=== PATIENT | female | born 1980 | race American Indian/Alaskan Native ===

== ENCOUNTER 2016-09-16 13:22 | Emergency (ER) | payer BC, OTHER ==
[2016-09-16 13:38] VITALS: TEMP 98.3; O2SAT 100; BMI 25.2
--- NOTE | 2016-09-16 13:46 | ED PDOC ---
Arrival/HPI - General Historian: Patient - General Time Seen by Provider: 09/16/16 13:37 - History of Present Illness Narrative History of Present Illness (Text): 09/16/16 13:42 35 y/o female, pmh including inguinal hernia, nkda, c/o lt. lower back pain x 3 weeks with no fall or trauma. Pt. stated that she works at [employer], standing for long hours and does heavy lifting, aching pain, on and off, no numbness or tingling and non-radiating pain, no chest pain or shortness of breath, no palpitation, no night sweat, no dizziness, no hematuria, no urinary or bowel incontinence or retention, no other medical or psychological complaints. (Lee Up) Past Medical History - Provider Review Nursing Documentation Reviewed: Yes - Infectious Disease Hx of Infectious Diseases: None - Tetanus Immunization Tetanus Immunization: Unknown - Past Medical History Past Medical History: No Previous - Psychiatric Hx Substance Use: No - Surgical History Hx Section: Yes (2008) Hx Inguinal Hernia Repair: Yes (2014) - Anesthesia Hx Anesthesia: Yes Hx Anesthesia Reactions: No Hx Malignant Hyperthermia: No - Suicidal Assessment Feels Threatened In Home Enviroment: No Family/Social History - Physician Review Nursing Documentation Reviewed: Yes Family/Social History: Unknown Family HX Smoking Status: Light Smoker < 10 Cigarettes Daily Hx Alcohol Use: No Hx Substance Use: No Hx Substance Use Treatment: No Allergies/Home Meds Allergies/Adverse Reactions: Allergies No Known Allergies Allergy (Verified 07/13/14 14:34) Home Medications: Home Meds Medication Instructions Recorded Confirmed Oxycodone HCl/Acetaminophen 1 tab PO PRN PRN 07/13/14 07/13/14 [Percocet 325 mg-5 mg] Review of Systems - Review of Systems Constitutional: absent: Fatigue, Fevers Eyes: absent: Vision Changes ENT: absent: Hearing Changes Respiratory: absent: SOB, Cough Cardiovascular: absent: Chest Pain Gastrointestinal: absent: Abdominal Pain, Nausea, Vomiting Genitourinary Female: absent: Dysuria Musculoskeletal: Back Pain, Myalgias. absent: Arthralgias, Neck Pain, Joint Swelling Skin: Rash Neurological: absent: Headache, Dizziness Psychiatric: absent: Anxiety, Depression Physical Exam Vital Signs Reviewed: Yes Temperature: Afebrile Blood Pressure: Normal Pulse: Regular Respiratory Rate: Normal Appearance: Positive for: Well-Appearing, Non-Toxic Pain Distress: Severe Mental Status: Positive for: Alert and Oriented X 3 - Systems Exam Head: Present: Atraumatic, Normocephalic Pupils: Present: PERRL Extroacular Muscles: Present: EOMI Conjunctiva: Present: Normal Mouth: Present: Moist Mucous Membranes Neck: Present: Normal Range of Motion Respiratory/Chest: Present: Clear to Auscultation, Good Air Exchange. No: Respiratory Distress, Accessory Muscle Use Cardiovascular: Present: Regular Rate and Rhythm, Normal S1, S2. No: Murmurs Abdomen: Present: Normal Bowel Sounds. No: Tenderness, Distention, Peritoneal Signs Back: Present: Normal Inspection, Other (LS spine: +ttp on lt. paraspinal muscle region, no midline tenderness, no rash, FROM without limitation, sensation intact, motor 5/5. ) Upper Extremity: Present: Normal Inspection. No: Cyanosis, Edema Lower Extremity: Present: Normal Inspection. No: Edema Neurological: Present: GCS=15, CN II-XII Intact, Speech Normal Skin: Present: Warm, Dry, Normal Color. 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 -Discharge home with naproxen, flexeril, heat compression, avoid strenuous exercise or activity, follow up with your own pmd within 2 days, return to the ER for any new or worsening signs or symptoms. 09/16/16 14:42 -Pain improved, feeling much better. (Lee Up) I was available for consultation during PA evaluation. The chart was reviewed by me, and I agree with disposition. The documented history was done by the physician care connector. The documented physical exam was done by the physician care connector. The documented procedures were done by the physician care connector. ( Salbador Grimes) - RAD Interpretation Radiology Orders: 09/16/16 13:49 LS SPINE WITH OBL > 18 YRS OLD [RAD] Stat PROCEDURE: Radiographs of the Lumbar Spine. HISTORY: lt. lower back pain x 3 weeks COMPARISON: No prior. FINDINGS: BONES: There is normal alignment of the lumbar vertebral bodies. Lumbar lordosis is maintained. Vertebral bodies are normal in height. There is no acute fracture , spondylolysis or spondylolisthesis. Bone mineralization is normal. DISC SPACES: There is mild degenerative disc disease at L5-S1. The remaining disc heights are maintained. OTHER FINDINGS: There are no pathologic soft tissue calcifications. Both sacroiliac joints are normal. IMPRESSION: No acute fracture, spondylolysis or spondylolisthesis. Mild degenerative disc disease at L5-S1. (Lee Up) - Medication Orders Current Medication Orders: Discontinued Medications Ketorolac Tromethamine (Toradol) 60 mg IM STAT STA Stop: 09/16/16 13:51 Last Admin: 09/16/16 14:06 Dose: 60 mg Lidocaine (Lidoderm) 1 ea TD STAT STA Stop: 09/16/16 13:51 Last Admin: 09/16/16 14:07 Dose: 1 ea Oxycodone/Acetaminophen (Percocet 5/325 Mg Tab) 1 tab PO STAT STA Stop: 09/16/16 13:51 Last Admin: 09/16/16 14:06 Dose: 1 tab - PA / HOME HEALTH LVN / Resident Statement / has reviewed & agrees with the documentation as recorded. Disposition/Present on Arrival - Present on Arrival Any Indicators Present on Arrival: No History of DVT/PE: No History of Uncontrolled Diabetes: No Urinary Catheter: No History of Decub. Ulcer: No History Surgical Site Infection Followin - Disposition Have Diagnosis and Disposition been Completed?: Yes Disposition Time: 13:49 Patient Plan: Discharge - Disposition Diagnosis: Low back pain Disposition: HOME/ ROUTINE Condition: IMPROVED Additional Instructions: Discharge home with naproxen, flexeril, heat compression, avoid strenuous exercise or activity, follow up with your own pmd within 2 days, return to the ER for any new or worsening signs or symptoms. Prescriptions: Cyclobenzaprine [Cyclobenzaprine HCl] 10 mg PO TID PRN #21 tab PRN Reason: Other Naproxen 500 mg PO BID PRN #20 tab PRN Reason: Other Referrals: PCP,NO [Primary Care Provider] - Follow up with primary [facility] [place] - Follow up with primary Forms: WORK NOTE
[2016-09-16] MEDS ORDERED: Oxycodone/Acetaminophen 5/325 mg Tab PO STA (13:50)
[2016-09-16] MEDS ORDERED: Lidocaine 5% Patch TD STA (13:50)
--- NOTE | 2016-09-16 14:57 | RAD ---
PROCEDURE: Radiographs of the Lumbar Spine. HISTORY: lt. lower back pain x 3 weeks COMPARISON: No prior. FINDINGS: BONES: There is normal alignment of the lumbar vertebral bodies. Lumbar lordosis is maintained. Vertebral bodies are normal in height. There is no acute fracture, spondylolysis or spondylolisthesis. Bone mineralization is normal. DISC SPACES: There is mild degenerative disc disease at L5-S1. The remaining disc heights are maintained. OTHER FINDINGS: There are no pathologic soft tissue calcifications. Both sacroiliac joints are normal. IMPRESSION: No acute fracture, spondylolysis or spondylolisthesis. Mild degenerative disc disease at L5-S1.
[2016-09-16 15:08] VITALS: BP 123/65; PULSE 69; RESP 16
== END 2016-09-16 15:06 | disposition home or self-care (01) ==
LOC: ED 13:22
DX: M54.5 Low back pain (principal)
CPT/HCPCS: 72110; 96372; 99283; J1885

== ENCOUNTER 2017-04-23 21:57 | Emergency (ER) | payer BC ==
[2017-04-23 21:57] VITALS: BMI 25.2
[2017-04-23] MEDS ORDERED: Sodium Chloride 0.9% 1,000 ML IV STA (22:47)
[2017-04-23] MEDS ORDERED: DiphenhydrAMINE 50 mg/ml Inj IVP STA (22:47)
--- NOTE | 2017-04-23 22:49 | ED PDOC ---
Arrival/HPI - General Chief Complaint: Headache Time Seen by Provider: 04/23/17 22:42 Historian: Patient - History of Present Illness Narrative History of Present Illness (Text): 04/23/17 22:47 36 y/o female, pmh including inguinal hernia, nkda, presents to this ED c/o right side headache x 10 hours. Patient stated SHERIFF has been progressively worsen. Patient noted vision of her right eye is blurred. Past Medical History - Infectious Disease Hx of Infectious Diseases: None - Tetanus Immunization Tetanus Immunization: Unknown - Past Medical History Past Medical History: No Previous - Psychiatric Hx Substance Use: No - Surgical History Hx Section: Yes (2008) - Anesthesia Hx Anesthesia: Yes Hx Anesthesia Reactions: No Hx Malignant Hyperthermia: No - Suicidal Assessment Feels Threatened In Home Enviroment: No Family/Social History Smoking Status: Former Smoker Hx Alcohol Use: Yes (s) Hx Substance Use: No Hx Substance Use Treatment: No Allergies/Home Meds Allergies/Adverse Reactions: Allergies No Known Allergies Allergy (Verified 04/23/17 22:35) Review of Systems - Review of Systems Constitutional: Normal. absent: Fatigue, Weight Change, Fevers Eyes: Photophobia, Other (blurred vision right eye). absent: Eye Pain ENT: Normal Respiratory: Normal Cardiovascular: Normal Gastrointestinal: Normal. absent: Nausea, Vomiting Genitourinary Female: Normal Musculoskeletal: Normal Skin: Normal Neurological: Headache. absent: Dizziness, Focal Weakness, Gait Changes, Speech Changes, Facial Droop, Disequilibrium Endocrine: Normal Hemo/Lymphatic: Normal Psychiatric: Normal Physical Exam Vital Signs Temp Pulse Resp BP Pulse Ox 04/24/17 00:52 58 L 17 105/81 98 04/23/17 22:30 98.5 F 56 L 20 124/81 99 Temperature: Afebrile Blood Pressure: Normal Pulse: Regular Respiratory Rate: Normal Appearance: Positive for: Well-Appearing, Non-Toxic, Comfortable Pain Distress: None Mental Status: Positive for: Alert and Oriented X 3 - Systems Exam Head: Present: Atraumatic, Normocephalic, Other (No scalp or face rash. No temporal or facial tenderness on palpation) Pupils: Present: PERRL Extroacular Muscles: Present: EOMI. No: Entrapment Conjunctiva: Present: Normal. No: Injected Ears: Present: Normal, NORMAL TM, Normal Canal, Other (no hemotympanum). No: Erythema, TM Bulging, Fluid, TM Perf Mouth: Present: Moist Mucous Membranes, Normal Lips. No: Drooling, Trismus Pharnyx: Present: Normal. No: ERYTHEMA, EXUDATE, TONSILS ENLARGED Nose (External): Present: Atraumatic Nose (Internal): Present: Normal Inspection Neck: Present: Normal Range of Motion, Trachea Midline. No: Meningeal Signs, MIDLINE TENDERNESS, Paraspinal Tenderness, Lymphadenopathy Respiratory/Chest: Present: Clear to Auscultation, Good Air Exchange. No: Respiratory Distress, Accessory Muscle Use, Wheezes, Retracting, Rhonchi Cardiovascular: Present: Regular Rate and Rhythm, Normal S1, S2. No: Murmurs Abdomen: Present: Normal Bowel Sounds. No: Tenderness, Distention, Peritoneal Signs, Rebound, Guarding Back: Present: Normal Inspection. No: CVA Tenderness Upper Extremity: Present: Normal Inspection, Normal ROM. No: Cyanosis, Edema Lower Extremity: Present: Normal Inspection, Normal ROM. No: Edema Neurological: Present: GCS=15, CN II-XII Intact, Speech Normal, Motor Func Grossly Intact, Normal Sensory Function, Normal Cerebellar Funct, Gait Normal Skin: Present: Warm, Dry, Normal Color. No: Rashes Psychiatric: Present: Alert, Oriented x 3, Normal Insight, Normal Concentration Medical Decision Making ED Course and Treatment: 04/24/17 01:08 Re-evaluation. Patient feels better. Discussed results and plan with patient who expresses understanding. All questions answered and there is agreement with the plan to discharge home with instructions. Patient stable for discharge. Return if symptoms persist or worsen. 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 no. Patient Name: AUSTIN HUERTA Pt. Address: [address] [place] [address] Med. Rec #: [id number] [place] [address]: Aracelis Fay PA-C Pt Order Location: ED : 1980 Female Age: 36 Order #: [id number] Reason for exam: SHERIFF CT Scan HEAD W/O CONTRAST Exam Date: 04/23/17 This imaging exam was performed at EXAM: CT Head Without Intravenous Contrast EXAM DATE/TIME: 04/23/2017 10:46 PM CLINICAL HISTORY: The patient age is 36 years old and is female; Pain; Headache; Additional info: Facility exam id and description: Ct heads head w/o contrast TECHNIQUE: Axial computed tomography images of the head/brain without intravenous contrast. All CT scans at this facility use one or more dose reduction techniques, viz.: automated exposure control; ma/kV adjustment per patient size (including targeted exams where dose is matched to indication; i.e. head); or iterative reconstruction technique. Coronal and sagittal reformatted images were created and reviewed. COMPARISON: No relevant prior studies available. FINDINGS: Brain: The white-maki differentiation is preserved demonstrating no acute territorial type infarct. No acute intracranial hemorrhage is seen. Midline shift: There is no midline shift. Ventricles: No ventriculomegaly. Bones/joints: The calvarium demonstrates no evidence for a depressed fracture. Soft tissues: No acute abnormality. Sinuses: Unremarkable as visualized. No acute sinusitis. Mastoid air cells: No mastoid effusion. IMPRESSION: 1. No acute intracranial abnormality. Dictated By: Andrés Toledo MD, MD Radiology Orders: 04/23/17 22:46 HEAD W/O CONTRAST [CT] Stat - Medication Orders Current Medication Orders: Discontinued Medications Diphenhydramine HCl (Benadryl) 50 mg IVP STAT STA Stop: 04/23/17 22:48 Last Admin: 04/23/17 23:10 Dose: 50 mg IVP Administration Document 04/23/17 23:10 IT (Rec: 04/23/17 23:10 IT [facility]) Charges for Administration # of IVP Administrations 1 Sodium Chloride (Sodium Chloride 0.9%) 1,000 mls @ 999 mls/hr IV .Q1H1M STA Stop: 04/23/17 23:47 Last Admin: 04/23/17 23:11 Dose: 999 mls/hr eMAR Start Stop Document 04/23/17 23:11 IT (Rec: 04[facility]23[facility]17 [facility] Intravenous Solution Start Date 04/23/17 Start Time 23:11 End Date 04/24/17 End time 00:11 Total Infusion Time 60 Ketorolac Tromethamine (Toradol) 15 mg IVP STAT STA Stop: 04/24/17 00:38 Last Admin: 04/24/17 00:52 Dose: 15 mg MAR Pain Assessment Document 04/24/17 00:52 IT (Rec: 04/24/17 00:52 [facility]-[id number]) Pain Reassessment Is this a pain reassessment? No Sleep Is patient sleeping during reassessment? No Presence of Pain Presence of Pain Yes Pain Scale Used Pain Scale Used Numeric IVP Administration Document 04/24/17 00:52 IT (Rec: 04/24/17 00:52 [id number]) Charges for Administration # of IVP Administrations 1 Metoclopramide HCl (Reglan) 10 mg IVP STAT STA Stop: 04/23/17 22:48 Last Admin: 04/23/17 23:10 Dose: 10 mg IVP Administration Document 04/23/17 23:10 IT (Rec: 04/23/17 23:11 [facility] Charges for Administration # of IVP Administrations 1 Disposition/Present on Arrival - Present on Arrival Any Indicators Present on Arrival: No History of DVT/PE: No History of Uncontrolled Diabetes: No Urinary Catheter: No History of Decub. Ulcer: No History Surgical Site Infection Following: None - Disposition Have Diagnosis and Disposition been Completed?: Yes Diagnosis: Headache Disposition: HOME/ ROUTINE Disposition Time: 01:09 Patient Plan: Discharge Condition: IMPROVED Discharge Instructions (ExitCare): General Headache (ED) Additional Instructions: Call neurologist dr. Mcmillan office for follow up visit in 2-3 days. Call also primary care doctor. Take medication as instructed with food. Do not drive or operate machinery for at least 8 hours if you take medication for headaches. Return to emergency if symptoms worsen. drink enough fluids, sleep at least 8 hours, avoid excessive tv or cellphone. Prescriptions: Codeine/Butalbital/ASA/Caffein [Fiorinal with Codeine #3 Cap] 1 each PO Q6H PRN #12 capsule PRN Reason: Headache Referrals: Beth Mcmillan MD [Staff Provider] - Follow up with primary Dione Elizabeth MD [Staff Provider] - Follow up with primary [facility] [Outside] - Follow up with primary [facility] [Outside] - Follow up with primary Forms: [facility] (Syriac), WORK NOTE
[2017-04-24 00:53] VITALS: BP 105/81; PULSE 58; RESP 17; O2SAT 98
--- NOTE | 2017-04-24 00:55 | CT ---
EXAM: CT Head Without Intravenous Contrast EXAM DATE/TIME: 04/23/2017 10:46 PM CLINICAL HISTORY: The patient age is 36 years old and is female; Pain; Headache; Additional info: SHERIFF Facility exam id and description: Ct heads head w/o contrast TECHNIQUE: Axial computed tomography images of the head/brain without intravenous contrast. All CT scans at this facility use one or more dose reduction techniques, viz.: automated exposure control; ma/kV adjustment per patient size (including targeted exams where dose is matched to indication; i.e. head); or iterative reconstruction technique. Coronal and sagittal reformatted images were created and reviewed. COMPARISON: No relevant prior studies available. FINDINGS: Brain: The white-maki differentiation is preserved demonstrating no acute territorial type infarct. No acute intracranial hemorrhage is seen. Midline shift: There is no midline shift. Ventricles: No ventriculomegaly. Bones/joints: The calvarium demonstrates no evidence for a depressed fracture. Soft tissues: No acute abnormality. Sinuses: Unremarkable as visualized. No acute sinusitis. Mastoid air cells: No mastoid effusion. IMPRESSION: 1. No acute intracranial abnormality.
[2017-04-24 01:35] VITALS: TEMP 98.2
== END 2017-04-24 01:35 | disposition home or self-care (01) ==
LOC: ED 21:57
DX: R51 Headache (principal); Z87.891 Personal history of nicotine dependence
CPT/HCPCS: 70450; 81025; 96361; 96374; 96375; 99285; J1200; J1885; J2765; J7040

== ENCOUNTER 2017-05-29 18:19 | Observation (INO) | payer BC ==
[2017-05-29 18:27] VITALS: BMI 23.6
[2017-05-29] MEDS ORDERED: Sodium Chloride 0.9% 1,000 ML IV STA (19:45)
[2017-05-29] MEDS ORDERED: Albuterol 0.083% Inhal Sol (2.5 mg/3 mL) UD IH STA (20:21)
--- NOTE | 2017-05-29 20:23 | ED PDOC ---
Arrival/HPI - General Chief Complaint: Cough, Cold, Congestion Time Seen by Provider: 05/29/17 18:47 Historian: Patient - History of Present Illness Narrative History of Present Illness (Text): 05/29/17 20:20 36-year-old female presents today with a 4 day history of cough and nasal congestion sore throat and body aches and chills. Patient denies fever at home. Patient states she's been taking NyQuil without improvement. Patient states yesterday she developed pain to the chest with cough and today she is found that the pain has become more constant. She describes the pain as sharp. She denies abdominal pain. Denies nausea or vomiting. Denies dizziness or weakness. No medications have been taken for pain/fever reduction. No other complaints Time/Duration: Other (4 days) Symptom Onset: Gradual Symptom Course: Worsening Quality: Aching, Pressure, Stabbing Severity Level: 5, 8 Past Medical History - Provider Review Nursing Documentation Reviewed: Yes - Travel History Have you recently traveled outside [place] w/in the past 3 mons?: No - Infectious Disease Hx of Infectious Diseases: None - Tetanus Immunization Tetanus Immunization: Unknown - Past Medical History Past Medical History: No Previous - Psychiatric Hx Substance Use: No - Surgical History Hx Section: Yes (2008) - Anesthesia Hx Anesthesia: Yes Hx Anesthesia Reactions: No Hx Malignant Hyperthermia: No - Suicidal Assessment Feels Threatened In Home Enviroment: No Family/Social History - Physician Review Nursing Documentation Reviewed: Yes Family/Social History: Unknown Family HX Smoking Status: Current Some Days Smoker Hx Alcohol Use: Yes (weekends) Frequency of alcohol use: Socially Hx Substance Use: No Hx Substance Use Treatment: No Allergies/Home Meds Allergies/Adverse Reactions: Allergies No Known Allergies Allergy (Verified 04/23/17 22:35) Review of Systems - Review of Systems Constitutional: Fatigue. absent: Fevers ENT: Sore Throat, Sinus Congestion Respiratory: Cough. absent: SOB Cardiovascular: Chest Pain. absent: Palpitations Gastrointestinal: absent: Abdominal Pain, Nausea, Vomiting Genitourinary Female: absent: Dysuria Musculoskeletal: absent: Arthralgias Skin: absent: Rash, Pruritis Neurological: absent: Headache, Dizziness Psychiatric: absent: Anxiety, Depression Physical Exam Vital Signs Reviewed: Yes Vital Signs Temp Pulse Resp BP Pulse Ox 05/29/17 18:40 98.6 F 72 18 135/88 97 Temperature: Afebrile Blood Pressure: Normal Pulse: Regular Respiratory Rate: Normal Appearance: Positive for: Well-Appearing, Non-Toxic, Comfortable Pain Distress: None Mental Status: Positive for: Alert and Oriented X 3 - Systems Exam Head: Present: Atraumatic Conjunctiva: Present: Normal Ears: Present: Normal, NORMAL TM, Normal Canal Mouth: Present: Moist Mucous Membranes. No: Drooling, Trismus Pharnyx: Present: Normal. No: ERYTHEMA, EXUDATE, Peritonsilar Swelling Nose (External): Present: Atraumatic Neck: Present: Normal Range of Motion, Trachea Midline. No: Lymphadenopathy Respiratory/Chest: Present: Clear to Auscultation, Good Air Exchange. No: Respiratory Distress, Accessory Muscle Use, Wheezes, Retracting, Rhonchi, Tachypneic Cardiovascular: Present: Regular Rate and Rhythm. No: Murmurs, Tachycardic Abdomen: No: Tenderness, Distention Back: Present: Normal Inspection Upper Extremity: Present: Normal ROM Lower Extremity: Present: Normal ROM Neurological: Present: GCS=15, Speech Normal Skin: Present: Warm, Dry, Normal Color. No: Rashes Psychiatric: Present: Alert, Oriented x 3 Medical Decision Making ED Course and Treatment: 05/29/17 20:25 pt with chest pain and cold symptoms for 4 days. tylenol given po albuterol given for hacking cough. ekg; normal sinus rhythm at [address] elevations normal axis normal intervals cbc; wnl cmp; wnl d dimer wnl trop: 0.10 cxr: no infiltrate. pt reassessment; pt states cough has improved. but still with slight cp. pt reassessment; after toradol; cp has improved. asa po pt with indeterminate troponin with continued chest pain. Concern for ACS. Patient refused Tamiflu pt with cold symptoms with chest pain worsening today; with troponin 0.10. case discussed with Dr. morales will Admit observational status to Tele for chest pain r/o acs. he would like UA/UDS/ ESR/ add lovenox, lipitor, plavix; which as been ordered by the resident. Repeat EKG sinus bradycardia with sinus arrhythmia at [address] elevations QTC 473 impression; chest pain, cough, cold symptoms Admit observational status to tele; Dr. morales - Lab Interpretations Lab Results: 05/29/17 20:05 05/29/17 20:05 Lab Results 05/29/17 22:20: NT-Pro-B Natriuret Pep 159 05/29/17 22:20: Lactate Dehydrogenase 705 H, Total Creatine Kinase 87, Troponin I 0.10 05/29/17 20:05: D-Dimer, Quantitative < 200 05/29/17 20:05: Influenza Typ A,B (EIA) Negative for flu a/b 05/29/17 20:05: WBC 8.4, RBC 4.15, Hgb 12.8, Hct 36.7, MCV 88.4, MCH 30.8, MCHC 34.9, RDW 12.1, Plt Count 253, MPV 11.0, Gran % 50.8, Lymph % (Auto) 41.5 H, [place] % (Auto) 4.9, Eos % (Auto) 2.6, Baso % (Auto) 0.2, Gran # 4.27, Lymph # ( Auto) 3.5 H, [place] # (Auto) 0.4, Eos # (Auto) 0.2, Baso # (Auto) 0.02 05/29/17 20:05: Sodium 138, Potassium 4.0, Chloride 102, Carbon Dioxide 26, Anion Gap 14, BUN 11, Creatinine 0.6 L, Est GFR ( Amer) > 60, Est GFR ( Non-Af Amer) > 60, Random Glucose 101, Calcium 9.2, Total Bilirubin 0.4, AST 45 H, ALT 54, Alkaline Phosphatase 72, Total Protein 7.7, Albumin 3.9, Globulin 3.7 , Albumin/Globulin Ratio 1.1 - RAD Interpretation Radiology Orders: 05/29/17 18:47 CHEST TWO VIEWS (PA/LAT) [RAD] Stat - Medication Orders Current Medication Orders: Aspirin (Aspirin Chewable) 81 mg PO DAILY [facility] Atorvastatin Calcium (Lipitor) 80 mg PO DIN [facility] Last Admin: 05/30/17 01:03 Dose: 80 mg Clopidogrel Bisulfate (Plavix) 75 mg PO DAILY [facility] Last Admin: 05/30/17 01:04 Dose: 75 mg Enoxaparin Sodium (Lovenox) 70 mg SC Q12H [facility] PRN Reason: Protocol Discontinued Medications Acetaminophen (Tylenol 325mg Tab) 975 mg PO STAT STA Stop: 05/29/17 18:48 Last Admin: 05/29/17 19:05 Dose: 975 mg MAR Pain/Vitals Document 05/29/17 19:05 GMD (Rec: 05/29/17 19:05 GMD [id number] Pain Reassessment Is This A Pain ReAssessment? No Albuterol Sulfate (Albuterol 0.083% Inhal Melody (2.5 Mg/3 Ml) Ud) 2.5 mg IH STAT STA Stop: 05/29/17 20:22 Last Admin: 05/29/17 20:36 Dose: 2.5 mg Aspirin (Aspirin) 325 mg PO STAT STA Stop: 05/29/17 23:20 Last Admin: 05/29/17 23:44 Dose: 325 mg Sodium Chloride (Sodium Chloride 0.9%) 1,000 mls @ 999 mls/hr IV .Q1H1M STA Stop: 05/29/17 20:45 Last Admin: 05/29/17 20:36 Dose: 999 mls/hr eMAR Start Stop Document 05/29/17 20:36 SS (Rec: 05/29/17 20:36 SS [id number]) Intravenous Solution Start Date 05/29/17 Start Time 20:00 End Date 05/29/17 End time 21:00 Total Infusion Time 60 Ketorolac Tromethamine (Toradol) 30 mg IVP STAT STA Stop: 05/29/17 20:31 Last Admin: 05/29/17 20:37 Dose: 30 mg MAR Pain Assessment Document 05/29/17 20:37 SS (Rec: 05/29/17 20:37 SS [id number]) Pain Reassessment Is this a pain reassessment? No Sleep Is patient sleeping during reassessment? No Presence of Pain Presence of Pain Yes Location Pain Location Body Endo Tech Chest IVP Administration Document 05/29/17 20:37 SS (Rec: 05/29/17 20:37 SS [id number]) Charges for Administration # of IVP Administrations 1 Disposition/Present on Arrival - Present on Arrival Any Indicators Present on Arrival: No History of DVT/PE: No History of Uncontrolled Diabetes: No Urinary Catheter: No History of Decub. Ulcer: No History Surgical Site Infection Following: None - Disposition Have Diagnosis and Disposition been Completed?: Yes Diagnosis: Chest pain, Flu-like symptoms Disposition: HOSPITALIZED Disposition Time: 01:00 Patient Plan: Observation, Telemetry Condition: FAIR Discharge Instructions (ExitCare): Chest Pain (ED) Referrals: PCP,NO [Primary Care Provider] - Follow up with primary Forms: [email or web address] ([place]ian)
[2017-05-29 20:24] LABS: BASO # 0.02 K/mm3 (0.0-2.0); BASO % 0.2 % (0.0-3.0); EOS # 0.2 (0.0-0.7); EOS % 2.6 % (1.5-5.0); GRAN # 4.27 (1.4-6.5); GRAN % 50.8 % (50.0-68.0); HEMOGLOBIN 12.8 g/dL (12.0-16.0); LYMPH # 3.5 (1.2-3.4); LYMPH % 41.5 % (22.0-35.0); MEAN CELL VOLUME 88.4 fl (80.0-105.0); MEAN CORPUSCULAR HEMOGLOBIN 30.8 pg (25.0-35.0); MEAN CORPUSCULAR HGB CONC 34.9 g/dl (31.0-37.0); MONO # 0.4 (0.1-0.6); MONO % 4.9 % (1.0-6.0); RBC 4.15 10^6/uL (3.5-6.1); RED CELL DISTRIBUTION WIDTH 12.1 % (11.5-14.5); WHITE BLOOD COUNT 8.4 10^3/ul (4.5-11.0)
[2017-05-29 20:29] LABS: ALB/GLOB RATIO 1.1 (1.1-1.8); ALBUMIN 3.9 g/dL (3.0-4.8); CALCIUM 9.2 mg/dL (8.4-10.5); GFR AFRICAN-AMERICAN > 60; GFR NON-AFRICAN AMERICAN > 60
[2017-05-29 20:32] LABS: ALT/SGPT 54 U/L (7-56); AST/SGOT 45 U/L (14-36); BLOOD UREA NITROGEN 11 mg/dL (7-21)
[2017-05-29 23:04] LABS: TROPONIN I 0.1 ng/mL
--- NOTE | 2017-05-30 01:11 | CP.PCM.HP ---
History of Present Illness - History of Present Illness History of Present Illness: This patient is a 36 year old female with no PMHx who presents with substernal, non-radiating, sharp, 8/10 chest pain which is exacerbated with inhalation and cough. Patient states she had URI symptoms x 4 days including productive cough with green sputum, sore throat, SOB, and sneezing. Chest pain started yesterday and was associated with the cough. Now, the chest pain is constant and is exacerbated by the cough. Patient states she took Nyquil for her symptoms which helped for the cough but did nothing for her chest pain. She does admit to sick contacts (daughter). She denies any fevers, chills, body aches, abdominal pain, changes in bowel habits, or changes in urinary symptoms. Patient denies any nausea but states that she did vomit clear liquid after a coughing episode in the ED. ROS POSITIVES: Chest pain, productive cough w/ green sputum, sore throat, SOB, Sneezing, sick contacts, NBNB Vomiting NEGATIVES: Nausea, fever, chills, body aches, abdominal pain, changes in bowel habits, urinary symptoms. PMHx: None PSHx: , Hernia repair Allergies: NKDA Social: Tobacco use intermittently for about 20 years. Currently smokes 3 cigarettes weekly. Drinks a bottle of wine once a week. Denies illicit drug use FamHx: Sarcoidosis (2 Aunts) Meds: None Present on Admission - Present on Admission Any Indicators Present on Admission: No Review of Systems - Review of Systems Review of Systems: As per HPI Past Patient History - Infectious Disease Hx of Infectious Diseases: None - Tetanus Immunizations Tetanus Immunization: Unknown - Past Social History Smoking Status: Current Some Days Smoker - PSYCHIATRIC Hx Substance Use: No - SURGICAL HISTORY Hx Section: Yes (2008) - ANESTHESIA Hx Anesthesia: Yes Hx Anesthesia Reactions: No Hx Malignant Hyperthermia: No Meds Allergies/Adverse Reactions: Allergies Allergy/AdvReac Type Severity Reaction Status Date / Time No Known Allergies Allergy Verified 04/23/17 22:35 Physical Exam - Constitutional Appears: Well, Non-toxic, No Acute Distress - Head Exam Head Exam: ATRAUMATIC, NORMAL INSPECTION, NORMOCEPHALIC - Eye Exam Eye Exam: EOMI, Normal appearance - ENT Exam ENT Exam: Mucous Membranes Moist, Normal Exam, Normal Oropharynx - Neck Exam Neck exam: Positive for: Normal Inspection. Negative for: Lymphadenopathy, Tenderness, Thyromegaly - Respiratory Exam Respiratory Exam: Clear to Auscultation Bilateral. absent: Accessory Muscle Use , Rales, Rhonchi, Wheezes, Respiratory Distress - Cardiovascular Exam Cardiovascular Exam: RRR, +S1, +S2. absent: Diastolic murmur, JVD, Systolic Murmur - GI/Abdominal Exam GI & Abdominal Exam: Normal Bowel Sounds, Soft. absent: Tenderness - Extremities Exam Extremities exam: Positive for: normal capillary refill, normal inspection. Negative for: pedal edema - Neurological Exam Neurological exam: Alert, Oriented x3 - Psychiatric Exam Psychiatric exam: Normal Affect, Normal Mood - Skin Skin Exam: Dry, Intact, Normal Color, Warm Results - Vital Signs Recent Vital Signs: Last Vital Signs Temp 98.6 F 05/29/17 18:40 Pulse 72 05/29/17 18:40 Resp 18 05/29/17 18:40 BP 135/88 05/29/17 18:40 Pulse Ox 97 05/29/17 18:40 - Labs Result Diagrams: 05/29/17 20:05 05/29/17 20:05 Labs: Laboratory Results - last 24 hr 05/29/17 05/29/17 05/29/17 20:05 20:05 20:05 WBC 8.4 RBC 4.15 Hgb 12.8 Hct 36.7 MCV 88.4 MCH 30.8 MCHC 34.9 RDW 12.1 Plt Count 253 MPV 11.0 Gran % 50.8 Lymph % (Auto) 41.5 H [place] % (Auto) 4.9 Eos % (Auto) 2.6 Baso % (Auto) 0.2 Gran # 4.27 Lymph # (Auto) 3.5 H [place] # (Auto) 0.4 Eos # (Auto) 0.2 Baso # (Auto) 0.02 D-Dimer, Quantitative Sodium 138 Potassium 4.0 Chloride 102 Carbon Dioxide 26 Anion Gap 14 BUN 11 Creatinine 0.6 L Est GFR ( Amer) > 60 Est GFR (Non-Af Amer) > 60 Random Glucose 101 Calcium 9.2 Total Bilirubin 0.4 AST 45 H ALT 54 Alkaline Phosphatase 72 Lactate Dehydrogenase Total Creatine Kinase Troponin I NT-Pro-B Natriuret Pep Total Protein 7.7 Albumin 3.9 Globulin 3.7 Albumin/Globulin Ratio 1.1 Influenza Typ A,B (EIA) Negative for flu a/b 05/29/17 05/29/17 05/29/17 20:05 22:20 22:20 WBC RBC Hgb Hct MCV MCH MCHC RDW Plt Count MPV Gran % Lymph % (Auto) [place] % (Auto) Eos % (Auto) Baso % (Auto) Gran # Lymph # (Auto) [place] # (Auto) Eos # (Auto) Baso # (Auto) D-Dimer, Quantitative < 200 Sodium Potassium Chloride Carbon Dioxide Anion Gap BUN Creatinine Est GFR ( Amer) Est GFR (Non-Af Amer) Random Glucose Calcium Total Bilirubin AST ALT Alkaline Phosphatase Lactate Dehydrogenase 705 H Total Creatine Kinase 87 Troponin I 0.10 NT-Pro-B Natriuret Pep 159 Total Protein Albumin Globulin Albumin/Globulin Ratio Influenza Typ A,B (EIA) Assessment & Plan - Assessment and Plan (Free Text) Assessment: 36 year old female with no PMHx who presents with substernal, non-radiating, sharp, 8/10 chest pain. Admitted for observation to rule out ACS. Plan: Chest Pain, R/O ACS Trend Troponins. 1st Trop 0.10 Trend CPK ECHO Trend EKG. 1st EKG shows no acute ST-T wave changes. Chest X-Ray: No acute disease. Possible perihilar lymphadenopathy and interstitial pattern. PENDING Official Read Lipid Panel UDS Vitamin D Lovenox (Therapeutic). 1st Dose Give on Admission Plavix 75 Daily. 1st Dose Give on Admission ASA 81 Daily. 325 Given in ED Nitropaste 1 inch Q6H Lipitor 80. 1st Dose Give on Admission Toradol 15 Q8H PRN Abd US, R/O Cholelithiasis: F/U Cough Likely DDx: Viral URI, Bacterial URI, GERD, Bronchitis, Sarcoidosis. Robitussin PRN Benzonatate 200 TID Rocephin/Doxy Proph Lovenox SCD's Protonix Patient discussed with Dr. Orellana. Bi Silvestre, PGY1
[2017-05-30] MEDS: guaiFENesin 200 mg/10 ml Syrup UD PO PRN ×3 (01:33→14:10)
[2017-05-30 01:51] VITALS: O2SAT 98
[2017-05-30] MEDS: Enoxaparin 80 mg Syringe SC SCH ×2 (01:55→13:14)
[2017-05-30] MEDS ORDERED: Pantoprazole 40 mg EC Tab PO STA (02:44)
[2017-05-30] MEDS ORDERED: cefTRIAXone 2 GM IN NS 2 GM/100 ML BAG IVPB SCH (03:00)
[2017-05-30] MEDS: Albuterol-Ipratrop 3 mg / 0.5 (3 ml) UD IH SCH ×2 (03:09→07:39)
[2017-05-30] MEDS: Nitroglycerin 2% Ointment Foilpak UD TOP SCH ×3 (03:09→17:17)
[2017-05-30 03:39] LABS: TROPONIN I 0.13 ng/mL
[2017-05-30 04:08] LABS: URINE BILIRUBIN NEGATIVE (NEGATIVE); URINE BLOOD NEGATIVE (NEGATIVE); URINE GLUCOSE (UA) NEGATIVE (NEGATIVE); URINE LEUKOCYTE ESTERASE NEGATIVE Leu/uL (NEGATIVE); URINE NITRATE NEGATIVE (NEGATIVE); URINE PROTEIN 30 mg/dL (<30 mg/dL); URINE UROBILINOGEN 0.2 E.U./dL (<1 E.U./dL)
[2017-05-30 04:12] LABS: HCG,QUALITATIVE URINE NEGATIVE (NEGATIVE)
[2017-05-30 04:13] LABS: URINE APPEARANCE SL CLOUDY (CLEAR); URINE COLOR YELLOW (YELLOW)
[2017-05-30 04:35] LABS: URINE RBC NEGATIVE /hpf (0-2); URINE WBC NEGATIVE /hpf (0-6)
[2017-05-30 04:36] LABS: URINE BACTERIA MANY (NEG)
[2017-05-30 05:03] LABS: BARBITURATES, UR NEGATIVE (NEGATIVE); BENZODIAZEPINES, UR NEGATIVE (NEGATIVE); OPIATES, UR NEGATIVE (NEGATIVE); PHENCYCLIDINE, UR NEGATIVE (NEGATIVE)
[2017-05-30] MEDS: Pantoprazole 40 mg EC Tab PO SCH ×2 (06:38→17:00)
[2017-05-30 07:12] LABS: BASO # 0.01 K/mm3 (0.0-2.0); BASO % 0.1 % (0.0-3.0); EOS # 0.2 (0.0-0.7); EOS % 2.1 % (1.5-5.0); GRAN % 56.2 % (50.0-68.0); HEMOGLOBIN 11.6 g/dL (12.0-16.0); LYMPH # 2.6 (1.2-3.4); LYMPH % 36.6 % (22.0-35.0); MEAN CELL VOLUME 88.5 fl (80.0-105.0); MEAN CORPUSCULAR HEMOGLOBIN 30.2 pg (25.0-35.0); MEAN CORPUSCULAR HGB CONC 34.1 g/dl (31.0-37.0); MEAN PLATELET VOLUME 10.9 fl (7.0-11.0); MONO # 0.4 (0.1-0.6); RBC 3.84 10^6/uL (3.5-6.1); RED CELL DISTRIBUTION WIDTH 12.3 % (11.5-14.5); WHITE BLOOD COUNT 7.1 10^3/ul (4.5-11.0)
[2017-05-30 07:29] LABS: INR 1.17 (0.93-1.08); PARTIAL THROMBOPLASTIN TIME 32.5 Seconds (25.1-36.5); PROTHROMBIN TIME 13.5 SECONDS (9.4-12.5)
[2017-05-30 07:36] LABS: LDL CHOLESTEROL 76 mg/dL (0-129)
[2017-05-30 08:02] LABS: ALB/GLOB RATIO 1.1 (1.1-1.8); ALBUMIN 3.3 g/dL (3.0-4.8); ALT/SGPT 49 U/L (7-56); AST/SGOT 32 U/L (14-36); BLOOD UREA NITROGEN 12 mg/dL (7-21); CALCIUM 8.7 mg/dL (8.4-10.5); GFR AFRICAN-AMERICAN > 60; GFR NON-AFRICAN AMERICAN > 60; HDL CHOLESTEROL 30 mg/dL (29-60); TROPONIN I 0.15 ng/mL
[2017-05-30] MEDS ORDERED: Iohexol 350 MG/100 ML VIAL ONE (08:33)
--- NOTE | 2017-05-30 08:47 | RAD ---
HISTORY: cough/cp COMPARISON: Right Ribs with chest radiograph 10/30/2013 TECHNIQUE: Chest PA and lateral FINDINGS: LUNGS: No active pulmonary disease. PLEURA: No significant pleural effusion identified. No pneumothorax apparent. CARDIOVASCULAR: Normal. OSSEOUS STRUCTURES: No significant abnormalities. VISUALIZED UPPER ABDOMEN: Normal. OTHER FINDINGS: None. IMPRESSION: No interval acute cardiopulmonary disease appreciated.
--- NOTE | 2017-05-30 09:06 | CT ---
PROCEDURE: CT Chest with contrast (Pulmonary Angiogram) HISTORY: r/o PE COMPARISON: None available. TECHNIQUE: Axial computed tomography images were obtained of the chest in the pulmonary arterial phase of enhancement. Coronal and sagittal reformatted images were created and reviewed. Intravenous contrast dose: Omnipaque 350, 100 cc Radiation dose: Total exam DLP = 369.63 mGy-cm. This CT exam was performed using one or more of the following dose reduction techniques: Automated exposure control, adjustment of the mA and/or kV according to patient size, and/or use of iterative reconstruction technique. FINDINGS: PULMONARY ARTERIES: Unremarkable. No pulmonary embolism. AORTA: No acute findings. No thoracic aortic aneurysm. LUNGS: No infiltrate appreciated bilaterally with a central airways appearing clear diffusely. A few small nodules are identified bilaterally: A 4 mm partially non solid nodule is seen at the right upper lobe in image 52 series 4. A 4.3 mm nodule is seen at the right lower lobe posteriorly in image 74. A 5.0 cm nodule seen in the left upper lobe and image 23. None of the nodules appear calcified. PLEURAL SPACES: Unremarkable. No effusion or pneuomothorax. HEART: Unremarkable. No cardiomegaly. No significant pericardial effusion. LYMPH NODES: No lymphadenopathy. BONES, CHEST WALL: Unremarkable. No fracture or destructive lesion OTHER FINDINGS: Unremarkable. IMPRESSION: 1. No CT evidence of pulmonary embolus at this time. No infiltrate, pleural or pericardial effusion, or pneumothorax identified. 2. Three sub cm pulmonary nodules are identified bilaterally as discussed above for which follow-up chest CT is advised in 1 year. Lung rads 2.
--- NOTE | 2017-05-30 09:55 | US ---
HISTORY: ???cholelithiasis COMPARISON: CT abdomen and pelvis from 10/20/2014 TECHNIQUE: Grayscale imaging was performed. FINDINGS: LIVER: Measures 13.8 cm. There is diffuse increased echogenicity of the liver parenchyma. No mass. No intrahepatic bile duct dilatation. GALLBLADDER: There are no gallstones, wall thickening or pericholecystic fluid. The sonographic Rodríguez's sign is negative. . COMMON BILE DUCT: Measures 4.4 mm. No stones. No dilatation. PANCREAS: Unremarkable as visualized. No mass. No ductal dilatation. RIGHT KIDNEY: Measures 10.9cm. Normal echogenicity. No calculus, mass, or hydronephrosis. LEFT KIDNEY: Measures 10.4cm. Normal echogenicity. No calculus, mass, or hydronephrosis. SPLEEN: Normal in size and contour. No mass. AORTA: No aneurysmal dilatation. IVC: Unremarkable. OTHER FINDINGS: None. IMPRESSION: Fatty liver. No cholelithiasis or biliary dilatation.
[2017-05-30] MEDS ORDERED: Sodium Chloride 0.9% 1,000 ML IV SCH (10:15)
--- NOTE | 2017-05-30 10:25 | CARD ---
APPROVED REPORT EKG Measurement Heart [id number] <Conclusion> Normal sinus rhythm NSSTW changes Prolonged QTc
[2017-05-30] MEDS ORDERED: Lidocaine 2% Inj (20ml) ONE (10:33)
[2017-05-30] MEDS ORDERED: HEPARIN SODIUM/NS 2,000 ML IV ONE (10:34)
[2017-05-30] MEDS ORDERED: Iodixanol 320 MG/ML 200 ML BOTTLE IV ONE (10:34)
[2017-05-30] MEDS ORDERED: Iohexol 350mgl/ml 50 ML ONE (10:34)
--- NOTE | 2017-05-30 10:36 | CARD ---
APPROVED REPORT EKG Measurement Heart [id number] <Conclusion> Sinus bradycardia with sinus arrhythmia RVCD
[2017-05-30] MEDS ORDERED: Iodixanol 320 MG/ML 100 ML BOTTLE IV ONE (11:36)
[2017-05-30] MEDS: Midazolam 2 MG/2 ML VIAL ONE ×4 (12:07→13:18)
[2017-05-30] MEDS: Potassium Chloride 20 mEq ER Tab PO SCH (14:38)
[2017-05-30] MEDS ORDERED: Potassium Chloride 20 mEq ER Tab PO ONE (14:39)
--- NOTE | 2017-05-30 14:41 | CARD ---
APPROVED REPORT EXAM: Two-dimensional and M-mode echocardiogram with Doppler and color Doppler. INDICATION Chest Pain INTERMEDIATE TROPS 2D DIMENSIONS Left Atrium (2D)4.5 (1.6-4.0cm)IVSd1.2 (0.7-1.1cm) LVDd4.0 (3.9-5.9cm)PWd1.2 (0.7-1.1cm) LVDs2.6 (2.5-4.0cm)FS (%) 35.2 % LVEF (%)65.2 (>50%) M-Mode DIMENSIONS Aortic Root2.70 (2.2-3.7cm)Aortic Cusp Exc.1.60 (1.5-2.0cm) Aortic Valve AoV Peak Kqhchkvo805.0cm/Jose Peak GR.13mmHg Mitral Valve MV E Fmhdfthh94.9cm/sMV A Kwtlgawd85.8cm/sE/A ratio1.0 TDI Lateral E' Peak V12.20cm/sMedial E' Peak V7.80cm/sE/Lateral E'7.2 E/Medial E'11.3 Pulmonary Valve PV Peak Kjyopvqk16.6cm/sPV Peak Grad.4mmHg Tricuspid Valve TR Peak Gjjfgorl079dr/sRAP [id number] Peak Gr.25mmHg [id number] LEFT VENTRICLE There is mild concentric left ventricular hypertrophy. The left ventricular function is normal. The left ventricular ejection fraction is within the normal range. RIGHT VENTRICLE The right ventricle is normal size. ATRIA The left atrium size is normal. The right atrium size is normal. AORTIC VALVE The aortic valve is thickened but opens well. MITRAL VALVE The mitral valve is thickened but opens well. Mitral regurgitation is trace to mild. TRICUSPID VALVE The tricuspid valve leaflets are thickened , but open well. There is trace to mild tricuspid regurgitation. There is no pulmonary hypertension. PULMONIC VALVE The pulmonary valve is normal in structure. PERICARDIAL EFFUSION There is no pericardial effusion. <Conclusion> LVH with good LV function Trace to mild MR Trace TR No pulmonary hypertension
[2017-05-30 15:25] VITALS: RESP 18
[2017-05-30 17:14] VITALS: BP 126/78; PULSE 65
[2017-05-30] MEDS ORDERED: Ergocalciferol 50,000 Intl Units Cap PO SCH (17:30)
[2017-05-30 17:54] VITALS: TEMP 98.5
--- NOTE | 2017-05-30 22:13 | CARDCATH ---
PROCEDURE DATE: 05/30/2017 HISTORY: The patient is a 36-year-old woman who presented with symptoms consistent with an upper respiratory infection. She __00:23___ describing chest pain consistent with angina. She has no cardiac risk factors other than a remote family history of CAD. Part of her evaluation revealed increasing troponin levels that were unexplained. The patient went for a CAT scan and revealed no pulmonary embolism. Because of this, a cardiac catheterization was recommended. PROCEDURE: Left heart catheterization with coronary arteriography and left ventriculogram. The right femoral artery was cannulated with a 6-[place] sheath. There were no complications. I performed moderate sedation which included the presence of an independent trained observer that assisted in monitoring the patient's level of consciousness and physiologic status. After administration of Versed and fentanyl, my intra service time was 15 minutes. The findings on catheterization revealed a left ventricle that contracted normally. Estimated ejection fraction of 70%. The patient had a left dominant circulation. The RCA was a small vessel and free of significant disease. The left main artery was unremarkable. The LAD and diagonal vessels were free of significant disease. The circumflex artery system was free of significant disease. Angio-Seal was used to close the femoral artery site. The patient tolerated the procedure well. In summary, the procedure revealed unremarkable coronary arteries with normal LV function. Given these findings, her chest pain is not of cardiac origin. Her elevated troponins cannot be explained by ischemic cardiac disease. Given these findings, the patient can be discharged in 4-5 hours. We will discuss the cardiac risk reduction program with the patient. Shoaib Byrne MD
--- NOTE | 2017-05-30 22:15 | HP ---
DATE OF EXAM: 05/30/2017 HISTORY OF PRESENT ILLNESS: The patient is a 36-year-old female who came to the emergency room last night complaining of cough, congestion, sore throat, runny nose, chills and also complaining of chest pain with coughing. The patient came to the emergency room as an ambulatory walk-in. Pain scale was described over 8. CODE STATUS: Full code. LIVING WILL ADVANCE DIRECTIVE: None. ALLERGIES: None. Height is 5 feet 5 inches. Weight is 142. BMI is 24. HOME MEDICATIONS: Unknown. OCCUPATIONAL HISTORY: The patient works for [employer]. PAST MEDICAL AND SURGICAL HISTORY: The patient had history of inguinal hernia surgery, history of social alcohol use and smoking, history of section, history of herniorrhaphy. 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 SOCIAL HISTORY: Positive for alcohol one bottle of wine a week. Positive for smoking for 20 years intermittently, smokes a few cigarettes a week. Denies substance abuse. Denies communicable transmissible disease. FAMILY HISTORY: Negative for coronary artery disease. Positive for sarcoidosis in arms. PHYSICAL EXAMINATION: GENERAL: The patient is seen in room 374, bed 1. The patient is seen lying in the bed. Patient is alert, awake, oriented x3. VITAL SIGNS: T-max 98.6. Telemetry shows sinus rhythm, heart rate 74, 67, 59, 68. Blood pressure ranging from 135/88 to 132/76 to 123/77; respiration 20; O2 sat 98%. HEENT: Head: Normocephalic, atraumatic. Pinkish conjunctivae. Dry oral mucosa. NECK: No neck rigidity. CHEST: Kyphosis. LUNGS: Shows occasional rhonchi in upper lung field, anterior-posterior bilaterally. CARDIOVASCULAR: Shows S1, S2, regular rhythm. ABDOMEN: Soft. Positive bowel sounds. No hepatosplenomegaly. No right and left upper and lower quadrant tenderness. No epigastric tenderness. No periumbilical tenderness. GENITALIA: Female. RECTAL: Deferred. EXTREMITIES: No pitting edema, no calf tenderness, no Homans sign. NEUROLOGIC: The patient is alert, awake, oriented x3. Cranial nerves II-XII grossly intact. Gait examination not tested. MUSCULOSKELETAL: Shows a body mass index of 24. DIAGNOSTIC DATA: 05/29 and 05/30: WBC 7.1 and 8.4; hemoglobin and hematocrit 11.6 and 34 and 12.8 and 36.7; platelet 215, 253. ESR is 20. PT/PTT 13.5, 32.5. D-dimer less than 200. Chemistry is significant for potassium of 3.4. AST was 45, which is normalized. Initial CPK 87. Repeat CPK 83. Initial troponin 0.10. Repeat troponin 0.13, 0.15. LFTs are normal. Triglyceride 161, cholesterol 145, LDL 76, HDL 30. Urine pH 6.0, specific gravity 1.030, 30 protein. negative, many bacteria. Urine drug screen negative. Influenza serology negative. Patient's diagnostics, imaging and cardiovascular testing was reviewed. Chest x-ray was negative for any infiltrates or any active disease. The patient underwent an abdominal sonogram, which shows diffuse echogenicity of the liver with fatty liver. The patient was ordered a CTA by Dr. Shoaib Byrne for evaluation of pulmonary embolism, which was negative for pulmonary embolism. There were 3 subcentimeter pulmonary nodules bilaterally. EKG shows sinus rhythm. Repeat EKG is sinus rhythm and sinus bradycardia with PAC is. The patient was seen in the emergency room by Jessica, the physician assistant coach. The patient was given aspirin. The patient was given DuoNeb nebulizer. The patient was given aspirin 325. The patient was given IV fluid. The patient was seen and evaluated in the ER by the medical sales consultant. IMPRESSION AND PLAN: 1. Chest pain with indeterminate troponin and positive troponin. 2. Acute coronary syndrome and unstable angina. 3. Acute non-ST elevation myocardial infarction with elevated troponin. 4. Questionable bronchitis with cough and phlegm. 5. Questionable and possible upper respiratory tract infection. She had an acute non-ST elevation. 6. Sinus bradycardia. 7. Elevated body mass index. 8. Normocytic anemia. 9. Hypokalemia. 10. Bacteriuria. 11. Right upper lobe 4-mm pulmonary nodule, right lower lobe 4.3-mm pulmonary nodule, left upper lobe 0.5-cm pulmonary nodule. 12. Hepatic steatosis and fatty liver. 13. Unstable angina. PLAN: At this time, the patient has been admitted to [facility] . The patient will be admitted to the telemetry . The patient has been ordered repeat labs and serial cardiac enzymes. Cardiology consultation ordered. The patient was given aspirin 81 mg p.o. daily. The patient is empirically started on doxycycline, Vibramycin 100 mg IV q.12, DuoNeb nebulizer every 6 hours, Lipitor 80 mg daily, Lovenox 70 mg subcu q. 12, nitro paste 1 inch q. 6 hours, Plavix 75 mg p.o. daily, Protonix 40 mg twice a day, Rocephin 2 g IV daily. The patient started on IV fluid. The patient is on Tessalon Perles 200 three times a day. The patient was started on Toradol for a couple of doses. The patient is on Tylenol 650 q.6 p.r.n., Zofran 4 IV q.4 p.r.n. The patient is started on IV fluid 0.9 normal saline at 100 mL an hour. The patient will be kept on liquid diet in anticipation for a cardiac catheterization tomorrow or stress test. Repeat EKG ordered. The patient has been ordered out of bed, Mikey Capps. I have spoken to the patient at length. I have explained to the patient all the details, diagnostic test results, and patient was advised about possible need for further cardiac intervention and testing, need for further diagnostic therapeutic intervention. All the above was explained to the patient at length and all questions concerned answered, which he acknowledged understood. At this time, the patient's further management will be dependent upon the patient's clinical condition, hemodynamic status, as per the patient's response to therapeutic intervention, as per cardiology recommendation. Dictated and electronically signed, not read. Tyrese Orellana MD
--- NOTE | 2017-05-31 09:41 | CARD ---
APPROVED REPORT EKG Measurement Heart [id number] <Conclusion> Normal sinus rhythm Possible Left atrial enlargement Mildly prolonged QTc
--- NOTE | 2017-05-31 10:04 | CARD ---
APPROVED REPORT EKG Measurement Heart [id number] <Conclusion> Normal sinus rhythm RVCD Mildly prolonged QTc
[2017-05-31] MEDS ORDERED: Potassium Chloride 20 mEq ER Tab PO ONE (14:39)
== END 2017-05-30 20:22 | disposition home or self-care (01) ==
LOC: ED 18:19 → ERH 05-30 01:08 → 3RSO 05-30 01:51 → 2RNO 05-30 12:55
PROVIDERS: ADMIT Internal Medicine; ATTEND Internal Medicine
DX: R07.89 Other chest pain (principal); J06.9 Acute upper respiratory infection, unspecified; R00.1 Bradycardia, unspecified; D64.9 Anemia, unspecified; E87.6 Hypokalemia; R91.1 Solitary pulmonary nodule; K76.0 Fatty (change of) liver, not elsewhere classified; R82.71 Bacteriuria; Z82.49 Family history of ischemic heart disease and other diseases of the circulatory system
CPT/HCPCS: 36415; 71046; 71275; 76700; 80053; 80061; 81001; 82009; 82306; 82550; 83615; 83880; 84484; 84600; 84703; 85025; 85378; 85610; 85651; 85730; 87804; 93005; 93306; 93458; 96361; 96372; 96374; 96375; 99152; 99285; C1760; C1769; C1887; C2629; G0378; G0480; J0696; J1644; J1650; J1885; J2250; J3010; J7040; Q9967

== ENCOUNTER 2018-02-24 15:01 | Emergency (ER) | payer BC ==
[2018-02-24 15:19] VITALS: TEMP 98.5; BMI 26.6
--- NOTE | 2018-02-24 16:27 | ED PDOC ---
Arrival/HPI - General Historian: Patient - History of Present Illness Narrative History of Present Illness (Text): 02/24/18 16:16 37-year-old female presents today with right sided upper neck and back pain status post injury. Patient states while at work she lifted a heavy suitcase. Patient states the pain is in the right side of the neck and back. She denies numbness weakness or tingling in the extremities. She denies fevers or chills. No chest pain or shortness of breath. No medications were taken for pain at home. Incident occurred prior to arrival. No other complaints <Jessica Stern - Last Filed: 02/24/18 17:04> <Lev Peralta - Last Filed: 02/24/18 17:13> - General Chief Complaint: Back Pain Time Seen by Provider: 02/24/18 15:02 Past Medical History - Provider Review Nursing Documentation Reviewed: Yes - Travel History Have you recently traveled outside [place] w/in the past 3 mons?: No - Infectious Disease Hx of Infectious Diseases: None - Tetanus Immunization Tetanus Immunization: Unknown - Past Medical History Past Medical History: No Previous - Cardiac Hx Cardiac Disorders: No - Pulmonary Hx Respiratory Disorders: No - Neurological Hx Neurological Disorder: No - HEENT Hx HEENT Disorder: No - Renal Hx Renal Disorder: No - Endocrine/Metabolic Hx Endocrine Disorders: No - Hematological/Oncological Hx Blood Disorders: No - Integumentary Hx Dermatological Disorder: No - Musculoskeletal/Rheumatological Hx Musculoskeletal Disorders: No Hx Falls: No - Gastrointestinal Hx Gastrointestinal Disorders: Yes (inguinal hernia with repair) - Genitourinary/Gynecological Hx Genitourinary Disorders: No - Psychiatric Hx Psychophysiologic Disorder: No Hx Substance Use: No - Surgical History Hx Section: Yes (2008) - Anesthesia Hx Anesthesia: Yes Hx Anesthesia Reactions: No Hx Malignant Hyperthermia: No - Suicidal Assessment Feels Threatened In Home Enviroment: No <Jessica Stern - Last Filed: 02/24/18 17:04> Family/Social History - Physician Review Nursing Documentation Reviewed: Yes Family/Social History: Unknown Family HX Smoking Status: Current Some Days Smoker Hx Alcohol Use: Yes (ocassionally) Hx Substance Use: No Hx Substance Use Treatment: No <Jessica Stern - Last Filed: 02/24/18 17:04> Allergies/Home Meds <Alton Sternina T - Last Filed: 02/24/18 17:04> <Lev Peralta - Last Filed: 02/24/18 17:13> Allergies/Adverse Reactions: Allergies No Known Allergies Allergy (Verified 02/24/18 15:22) Review of Systems - Review of Systems Constitutional: absent: Fatigue, Fevers Respiratory: absent: SOB, Cough Gastrointestinal: absent: Abdominal Pain, Nausea, Vomiting Musculoskeletal: Back Pain, Neck Pain Skin: absent: Rash, Pruritis Neurological: absent: Headache, Dizziness Psychiatric: absent: Anxiety, Depression <Alton Sternina T - Last Filed: 02/24/18 17:04> Physical Exam Vital Signs Reviewed: Yes Vital Signs Temp Pulse Resp BP Pulse Ox 02/24/18 15:19 98.5 F 65 19 137/77 100 Temperature: Afebrile Blood Pressure: Normal Pulse: Regular Respiratory Rate: Normal Appearance: Positive for: Well-Appearing, Non-Toxic, Comfortable Pain Distress: None Mental Status: Positive for: Alert and Oriented X 3 - Systems Exam Head: Present: Atraumatic Mouth: Present: Moist Mucous Membranes Neck: Present: Normal Range of Motion, Paraspinal Tenderness (+ minimal right sided paraspinal and trapezius tenderness. no edema, no erythema; no ecchymosis. ). No: MIDLINE TENDERNESS Respiratory/Chest: Present: Clear to Auscultation, Good Air Exchange. No: Respiratory Distress, Accessory Muscle Use Cardiovascular: Present: Regular Rate and Rhythm, Normal S1, S2. No: Murmurs Back: Present: Normal Inspection, Paraspinal Tenderness (+ minimal right upper paraspinal tenderness. ). No: Midline Tenderness Upper Extremity: Present: Normal Inspection, Normal ROM, NORMAL PULSES, Neurovascularly Intact, Capillary Refill < 2s. No: Tenderness Neurological: Present: GCS=15 Skin: Present: Warm, Dry, Normal Color. No: Rashes Psychiatric: Present: Alert, Oriented x 3 <SyedtejaJessica T - Last Filed: 02/24/18 17:04> Vital Signs Temp Pulse Resp BP Pulse Ox 02/24/18 15:19 98.5 F 65 19 137/77 100 <Lev Peralta - Last Filed: 02/24/18 17:13> Medical Decision Making ED Course and Treatment: 02/24/18 16:34 Patient nontoxic well-appearing in no distress with stable vital signs. Toradol, Flexeril I advised to followup with the orthopedist/back specialist within the next 2 days. Return if symptoms worsen persist or new symptoms develop Impression: Back pain Motrin every 6 hours as needed for pain Flexeril one tablet every 8 hours as needed for muscle spasms: May cause drowsiness Followup with the orthopedist/back specialist within the next 2 days Followup with primary care physician within the next 2 days Return if symptoms worsen persist or if new symptoms develop <Jessica Stern - Last Filed: 02/24/18 17:04> - Medication Orders Current Medication Orders: Discontinued Medications Cyclobenzaprine HCl (Flexeril) 10 mg PO STAT STA Stop: 02/24/18 16:16 Last Admin: 02/24/18 16:25 Dose: 10 mg Ketorolac Tromethamine (Toradol) 60 mg IM STAT STA Stop: 02/24/18 15:54 Last Admin: 02/24/18 16:25 Dose: 60 mg MAR Pain Assessment Document 02/24/18 16:25 EQ (Rec: 02/24/18 16:26 EQ [id number]) Pain Reassessment Is this a pain reassessment? No Sleep Is patient sleeping during reassessment? No Presence of Pain Presence of Pain Yes IM Administration Charges Document 02/24/18 16:25 EQ (Rec: 02/24/18 16:26 EQ [id number]) Charges for Administration # of IM Administrations 1 <Lev Peralta - Last Filed: 02/24/18 17:13> - PA / IMPORT AND EXPORT CLERK / Resident Statement / has reviewed & agrees with the documentation as recorded. <Lev Peralta - Last Filed: 02/24/18 17:13> Disposition/Present on Arrival - Present on Arrival Any Indicators Present on Arrival: No History of DVT/PE: No History of Uncontrolled Diabetes: No Urinary Catheter: No History of Decub. Ulcer: No History Surgical Site Infection Following: None - Disposition Have Diagnosis and Disposition been Completed?: Yes Disposition Time: 16:30 Patient Plan: Discharge <Jessica Stern - Last Filed: 02/24/18 17:04> <Lev Peralta - Last Filed: 02/24/18 17:13> - Disposition Diagnosis: Back pain, Neck pain Disposition: HOME/ ROUTINE Condition: GOOD Discharge Instructions (ExitCare): Neck Pain, Upper Back Pain (DC) Additional Instructions: Motrin every 6 hours as needed for pain Flexeril one tablet every 8 hours as needed for muscle spasms: May cause drowsiness Followup with the orthopedist/back specialist within the next 2 days Followup with primary care physician within the next 2 days Return if symptoms worsen persist or if new symptoms develop Prescriptions: Cyclobenzaprine [Cyclobenzaprine HCl] 10 mg PO Q8 #10 tab Ibuprofen [Motrin] 600 mg PO Q6H PRN #20 tab PRN Reason: pain/fever reduction Referrals: Minh Locke MD [Staff Provider] - Follow up with primary Cathy Kaminski MD [Medical Doctor] - Follow up with primary [facility] [Outside] - Follow up with primary Forms: [employer] ([employer]), WORK NOTE
[2018-02-24 17:13] VITALS: BP 129/76; PULSE 67; RESP 18; O2SAT 99
== END 2018-02-24 17:00 | disposition home or self-care (01) ==
LOC: ED 15:01
DX: M54.2 Cervicalgia (principal); M54.9 Dorsalgia, unspecified
CPT/HCPCS: 96372; 99282; J1885